=== PATIENT | female | born 1940 | race Caucasian/White ===

== ENCOUNTER 2016-10-18 05:25 | Emergency (ER) | payer OTHER ==
[~2016-10-18 05:25] MED LIST: ADVAIR250 INH; ASAB PO; BORON PO; CALCIUM; CALCIUM CITRATE PO; CYANO1000T PO; DULERA 200 MCG/13 GM INH; ELIQUIS 2.5 MG2.5 MG PO; FORTEO SC; NOR10 PO; P5 PO; PREDNISONE2.5 MG PO; PROAIR HFA INH; SINGULAIR1 PO; SPIRIVA INH; STERAPRED5 MG; TESSALON200 MG PO; VENTOLIN HFA INH; VIT 12; VITA D3 PO; VITAMIN D31000 UNIT PO
== END 2016-10-18 05:30 | disposition home or self-care (01) ==
LOC: ER 05:25
DX: B02.9 Zoster without complications (principal); I10 Essential (primary) hypertension; I48.91 Unspecified atrial fibrillation; Z88.2 Allergy status to sulfonamides; Z88.8 Allergy status to other drugs, medicaments and biological substances; Z79.899 Other long term (current) drug therapy; Z79.52 Long term (current) use of systemic steroids
CPT/HCPCS: 96372; 99282; A9270-GY; J1170

== ENCOUNTER 2017-03-01 18:47 | Emergency (ER) | payer OTHER ==
[2017-03-01 21:02] LABS: BASOPHILS 0.3 %; BASOPHILS ABSOLUTE 0.02 10/3/uL (0.0-0.16); EOSINOPHILS 1.2 %; EOSINOPHILS ABSOLUTE 0.08 10/3/uL (0.0-0.53); ER CBC TAT 0 Hrs 05 Mins; HEMATOCRIT 35.8 % (36.0-48.0); IMMATURE GRANULOCYTES 0.1 %; IMMATURE GRANULOCYTES ABSOLUTE 0.01 10/3/uL (0.0-0.11); LYMPHOCYTES 16.7 %; LYMPHOCYTES ABSOLUTE 1.14 10/3/uL (0.67-4.30); MEAN CORPUS HGB CONC 33.5 g/dL (32.0-36.0); MEAN CORPUSCULAR HEMOGLOB 32.8 pg (26.0-34.0); MEAN CORPUSCULAR VOLUME 97.8 fL (80-100); MEAN PLATELET VOLUME 9.9 fL (9.2-13.0); MONOCYTES 11.9 %; MONOCYTES ABSOLUTE 0.81 10/3/uL (0.21-1.20); NEUTROPHILS 69.8 %; NEUTROPHILS ABSOLUTE 4.76 10/3/uL (2.02-8.40); PLATELET COUNT 225 10/3/uL (150-400); RBC DISTRIBUTION WIDTH 12.7 % (12.0-16.0); RED CELL COUNT 3.66 10/6/uL (4.0-5.6); WHITE BLOOD CELLS 6.8 10/3/uL (4.5-10.5)
[2017-03-01 21:06] LABS: MANUAL DIFF NO %
[2017-03-01 21:09] LABS: INTERNATIONAL NORMAL RATI 1.2 UNITS (-); PARTIAL THROMBO TIME 32.6 SEC (22.5-37.2); PROTIME (NOT ORD) 15.4 SEC (12.0-14.5)
[2017-03-01 21:19] LABS: ALBUMIN 3.4 G/DL (3.5-5.0); ALKALINE PHOSPHATASE 101 U/L (45-117); CALCIUM, SERUM 8.7 MG/DL (8.5-10.4); CHLORIDE, SERUM 107 MMOL/L (96-112); CO2 (CARBON DIOXIDE) 24 MMOL/L (24-34); CREATININE 1.29 MG/DL (0.55-1.02); GFR AFRICAN AMERICAN 46 ML/MIN (>=60); GFR NON AFRICAN AMERICAN 40 ML/MIN (>=60); GLUCOSE, SERUM 98 MG/DL (60-99); POTASSIUM, SERUM 4.4 MMOL/L (3.5-5.3); SGOT(AST) 17 U/L (5-40); SGPT(ALT) 22 U/L (5-65); TOTAL BILIRUBIN 0.5 MG/DL (0-1.2); TOTAL PROTEIN 6.8 G/DL (6.0-8.5); TROPONIN I <0.02 NG/ML (<0.05)
[2017-03-01 21:21] LABS: BUN (BLOOD UREA NITROGEN) 25 MG/DL (6-23); GLOBULIN 3.4 G/DL (2.5-4.1); SODIUM, SERUM 141 MMOL/L (135-148)
== END 2017-03-01 23:01 | disposition home or self-care (01) ==
LOC: ER 18:47
PROVIDERS: Nurse Practitioner Acute Care
DX: S51.812A Laceration without foreign body of left forearm, initial encounter (principal); S63.502A Unspecified sprain of left wrist, initial encounter; R51 Headache; R42 Dizziness and giddiness; N13.30 Unspecified hydronephrosis; N39.46 Mixed incontinence; R35.1 Nocturia; M54.9 Dorsalgia, unspecified; J45.909 Unspecified asthma, uncomplicated; Z87.01 Personal history of pneumonia (recurrent); N18.9 Chronic kidney disease, unspecified; I48.0 Paroxysmal atrial fibrillation; M32.9 Systemic lupus erythematosus, unspecified; K20.9 Esophagitis, unspecified; Z88.2 Allergy status to sulfonamides; Z88.8 Allergy status to other drugs, medicaments and biological substances; Z79.899 Other long term (current) drug therapy; Z79.52 Long term (current) use of systemic steroids; W19.XXXA Unspecified fall, initial encounter
CPT/HCPCS: 70450; 70486; 71010; 73090-LT; 73110-LT; 73560-RT; 73630-LT; 78708; 80053; 84484; 85025; 85610; 85730; 96374; 99285; A9562